=== PATIENT | female | born 1980 | race Two or more races ===

== ENCOUNTER 2024-08-30 07:18 | Outpatient (CLI) | payer OTHER | END 2024-08-30 07:24 | disposition home or self-care (01) | LOC: SONOGRAMA 07:18 | PROVIDERS: ATTEND Specialist | DX: K80.80 Other cholelithiasis without obstruction (principal) ==

== ENCOUNTER 2024-10-27 11:03 | Outpatient (CLI) | payer OTHER ==
[2024-10-27 12:28] LABS: PH,URINE 6.5 (5.0-8.0); URINE APPEARANCE Clear; URINE BILIRRUBIN Negative (NEGATIVE); URINE BLOOD Negative; URINE COLOR Yellow; URINE GLUCOSE Negative (NEGATIVE); URINE KETONE Negative (NEGATIVE); URINE LEUKOCYTE Negative; URINE NITRATE Negative; URINE PROTEIN Trace (NEGATIVE)
[2024-10-27 12:31] LABS: HEMATOCRIT 35.5 % (36.0-45.00); HEMOGLOBIN 11.8 g/dL (12.0-15.00); MEAN CELL VOLUME 78.7 fL (80.00-100.00); MEAN CORPUSCULAR HEMOGLOBIN 26.2 pg (27.00-32.0); MEAN CORPUSCULAR HGB CONC 33.3 g/dl (32.0-36.0); PLATELET COUNT 383 K/uL (150-450); RED BLOOD COUNT 4.51 M/uL (4.00-6.00); RED CELL DISTRIBUTION WIDTH 13.9 % (11.5-14.5)
[2024-10-27 12:33] LABS: URINE BACTERIA 1244.7 uL (0.0-1933); URINE EPITHELIAL CELLS 45.8 uL (0.0-38.8); URINE RBC 14.5 uL (0.0-20.8); URINE WBC 9.4 uL (0.0-23.2)
[2024-10-27 12:56] LABS: ALBUMIN 3.6 gm/dL (3.4-5.0); BILIRUBIN TOTAL 0.19 mg/dL (0.3-1.2); CALCIUM 8.7 mg/dL (8.5-10.1); CHOL HDL RATIO 3.3 (0-5.0); CREATININE SERUM 0.62 mg/dL (0.55-1.02); GFR 104.09; GLOBULINA 4.1 G/DL (2.4-3.5); POTASSIUM 3.95 mEq/L (3.5-5.1); TOTAL PROTEIN 7.7 gm/dL (6.4-8.2); TSH 1.38 uIU/mL (0.358-3.74)
[2024-10-27 12:59] LABS: URINE CAST 0.14 uL (0.0-1.40)
== END 2024-10-27 11:08 | disposition home or self-care (01) ==
LOC: LAB 11:03
PROVIDERS: ATTEND Specialist
DX: E03.9 Hypothyroidism, unspecified (principal); E16.2 Hypoglycemia, unspecified; E78.5 Hyperlipidemia, unspecified; E55.9 Vitamin D deficiency, unspecified; Z12.11 Encounter for screening for malignant neoplasm of colon; N91.1 Secondary amenorrhea; E22.1 Hyperprolactinemia

== ENCOUNTER 2024-10-31 14:38 | Outpatient (CLI) | payer OTHER | END 2024-10-31 14:41 | disposition home or self-care (01) | LOC: MAMO-SONO 14:38 | PROVIDERS: ATTEND Specialist | DX: N60.01 Solitary cyst of right breast (principal); N60.02 Solitary cyst of left breast ==